=== PATIENT | male | born 1960 | race Caucasian/White ===

== ENCOUNTER 2021-12-12 12:55 | Outpatient (CLI) | payer MEDICAID ==
[2021-12-12] MEDS ORDERED: RISP2TAB76 PO (14:45)
[2021-12-12] MEDS ORDERED: NICOTINE 14 MG/24 HOUR PATCH TD ONE (14:45)
[2021-12-12 14:46] LABS: GLUCOMETER DEV NAME(LOC) POC.BV
[2021-12-12] MEDS ORDERED: BENZ1TAB10 PO (14:47)
[2021-12-12] MEDS: RisperiDONE 2 MG TABLET PO SCH ×2 (15:24→20:48)
[2021-12-12 15:30] VITALS: BP 102/63
[2021-12-12 15:32] VITALS: BP 102/63
[2021-12-12 20:00] VITALS: BP 104/64
[2021-12-12] MEDS ORDERED: BENZTROPINE MESYLATE 1 MG TABLET PO SCH (21:00)
== END 2021-12-13 07:30 | disposition home or self-care (01) ==
LOC: CSU 12:55
PROVIDERS: ATTEND Psychiatry & Neurology Psychiatry
DX: F20.9 Schizophrenia, unspecified (principal)
CPT/HCPCS: 90792; Z7610